=== PATIENT | female | born 1930 | race Caucasian/White ===

== ENCOUNTER 2021-05-21 13:55 | Inpatient (IN) | payer BC ==
[~2021-05-21] VITALS: Ht 167.6 cm; Wt 41.7 kg
[2021-05-21] MEDS ORDERED: WARF1TAB2 (14:05)
[2021-05-21] MEDS ORDERED: SYNTHROID (14:05)
[2021-05-21] MEDS ORDERED: TENORMIN (14:05)
--- NOTE | 2021-05-21 14:15 | NUR ---
BIB [facility] FOR LOW BP. I PALCED HER ON A MONITOR. IV PLACED ON LEFT WRIST/FOREARM AREA, IV FLUIDS RUNNING. PATIENT IS AWAKE, ALERT, ORIENTED X4 IN NO DISTRESS. DENIES PAIN. STATES SHE NEEDS A BLOOD TRANSFUSION WHICH SHE WAS GOING TO RECEIVE TODAY AT [facility].
[2021-05-21] MEDS ORDERED: IV NORMAL SALINE 1000 ML BAG IV ONE (14:30)
[2021-05-21 14:54] LABS: MEAN CORPUSCULAR HEMOGLOBIN 28.9 uug (24.7-32.8)
[2021-05-21 14:56] LABS: HEMATOCRIT 21.4 % (31.2-41.9); MEAN CORPUSCULAR VOLUME 88.7 fL (75.5-95.3); PLATELET COUNT (AUTO) 425 K/uL (179-408)
[2021-05-21 15:08] LABS: CREATININE 1.1 mg/dL (0.6-1.3); POTASSIUM 3.8 mmol/L (3.5-5.1)
[2021-05-21 15:13] LABS: BILIRUBIN,DIRECT 0.2 mg/dL (0.0-0.2); BILIRUBIN,TOTAL 0.5 mg/dL (0.2-1.0)
--- NOTE | 2021-05-21 15:21 | NUR ---
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 Patient denies chest pain, dizziness or SOB
--- NOTE | 2021-05-21 15:39 | NUR ---
PATIENT REFUSED TO SWALLOW LIQUIDS.
[2021-05-21] MEDS ORDERED: levoFLOXacin 750MG/D5W 150 ML IV ONE ×2 (15:45→16:09)
[2021-05-21] MEDS: PIPERACILLIN SODIUM/TAZOBACTAM 3.375 G in IV DEXTROSE 5% 50 ML IV ONE ×2 (15:46→15:58)
[2021-05-21] MEDS ORDERED: PIPERACILLIN/TAZOBACTAM/D5W 50 ML IV ONE (15:56)
--- NOTE | 2021-05-21 16:12 | NUR ---
I ASKED PATIENT IF SHE HAS ANY DRUG ALLERGIES (BEFORE I STARTED THE ZOSYN) AND SHE STATED SHE IS ALLERGIC TO PENICILLIN. I DID NOT ADMINISTER THE ZOSYN AND NOTIFIED DR SHELTON
--- NOTE | 2021-05-21 16:49 | NUR ---
T AND C FOR BLOOD TRANSFUSION DRAWN BY RAIMANN MACHINE OPERATOR NOW. PATIENT IS AWAKE AND ALERT WITH NO COMPLAINTS
[2021-05-21] MEDS ORDERED: ACETAMINOPHEN 325 MG TABLET PO PRN (17:15)
[2021-05-21] MEDS ORDERED: REMEDY ESSENTIAL ZINC PASTE 113 GM TP PRN (17:15)
[2021-05-21] MEDS ORDERED: MAGNESIUM HYDROXIDE 30 ML LIQUID UDC PO PRN (17:15)
[2021-05-21] MEDS ORDERED: ONDANSETRON 4 MG/2 ML VIAL IV PRN (17:15)
[2021-05-21] MEDS ORDERED: IV NS 1000 ML 1,000 ML IV PRN (17:15)
--- NOTE | 2021-05-21 19:53 | NUR ---
HAND OFF REPORT GIVEN TO NOC RN IN TELE. PATIENT IS AWAKE AND ALERT.
--- NOTE | 2021-05-21 21:00 | NUR ---
Patient arrived at 2014 via gurney. Alert and oriented x 3, hard of hearing. IV on left wrist intact and patent, running NS 75 ml/hr. On simple mask 6L, saturating at 98%. No signs of acute distress. Allergies to penicillin and latex noted. BP 74/38, runs low according to patient. Bed in the lowest position, bed alarm on, call light within reach. Safety measures initiated.
[2021-05-21 21:24] VITALS: BP 84/36
[2021-05-22] VITALS (10 sets, daily range): BP systolic 72–105; BP diastolic 30–45
--- NOTE | 2021-05-22 05:13 | NUR ---
Pt slept intermittently throughout the night. On RA saturating at 98%. One unit PRBC given, completed at 0411. BP 93/45, temp 98.2, R 18, HR 66. IV in left wrist intact and running 75 mls NS. Educated pt of risks and benefits of lab draw, continued to refuse troponin lab draw. No signs of acute distress. Call lights within reach. Safety measures maintained. Will endorse to am shift.
[2021-05-22 06:53] LABS: HEMATOCRIT 22.7 % (31.2-41.9); MEAN CORPUSCULAR HEMOGLOBIN 30.2 uug (24.7-32.8); PLATELET COUNT (AUTO) 306 K/uL (179-408)
[2021-05-22] MEDS ORDERED: PANTOPRAZOLE SODIUM 40 MG TABLET.DR PO SCH (07:00)
[2021-05-22 07:34] LABS: THYROID STIMULATING HORMONE 125.396 mIU/mL (0.358-3.740)
[2021-05-22 07:38] LABS: CREATININE 0.9 mg/dL (0.6-1.3); MAGNESIUM 2.2 mg/dL (1.8-2.4); PHOSPHOROUS 3.4 mg/dL (2.5-4.9); POTASSIUM 3.5 mmol/L (3.5-5.1)
--- NOTE | 2021-05-22 09:00 | NUR ---
Pt is a/o x 4, saturating 98% on 3L NC. Pt received 1 unit of blood during pm shift. pt's hgb increased from 7.0 to 7.8, hematocrit increased from 21.4 to 22.7. Troponin was refused during pm shift per report but morning labs indicated troponin within normal limits. Pt states that she wants to go home. Per cardio she is cleared for discharge. Plan is to discharge pt today. Comfort measures provided, call light within reach. will continue to monitor.
--- NOTE | 2021-05-22 12:01 | NUR ---
academic manager spoke to pt family member (Isa) to arrange for discharge. Pt will be going home, picker feeder time around 1230, Isa insisted that they dont need transportation and she will be taking her home. Pt notified of discharge order.
--- NOTE | 2021-05-22 13:27 | NUR ---
Pt has been discharged home. Pt was wheeled down to private car and was picked up by family friend Isa and machine striper. All belongings at hand. Discharge education given to pt and personal carer upon cone picker, Pt has an appt with her PCP on May 24. No complaint of pain, shortness of breath, or dizziness.
[2021-05-22] MEDS ORDERED: SOD FERRIC GLUC COMPLX/SUCROSE 125 MG in IV NORMAL SALINE 100 ML IV SCH (14:00)
[2021-05-22] MEDS ORDERED: levoFLOXacin 500 MG/D5W 500 MG in PREMIXED 1 EACH IV SCH (16:00)
[2021-05-23] MEDS ORDERED: levoFLOXacin 750MG/D5W 750 MG in PREMIXED 1 EACH IV SCH (16:00)
== END 2021-05-22 13:20 | disposition home or self-care (01) | DRG 811 ==
LOC: ER 13:55 → TELE3 19:55
PROVIDERS: ADMIT Hospitalist; ATTEND Hospitalist
PROC: 30233N1 Transfusion of Nonautologous Red Blood Cells into Peripheral Vein, Percutaneous Approach (ICD-10-PCS; principal; 2021-05-22)
DX: D50.9 Iron deficiency anemia, unspecified (principal); E43 Unspecified severe protein-calorie malnutrition; I48.20 Chronic atrial fibrillation, unspecified; I42.9 Cardiomyopathy, unspecified; J98.11 Atelectasis; Z68.1 Body mass index [BMI] 19.9 or less, adult; Z95.2 Presence of prosthetic heart valve; Z79.01 Long term (current) use of anticoagulants; E78.5 Hyperlipidemia, unspecified; E88.09 Other disorders of plasma-protein metabolism, not elsewhere classified; I95.9 Hypotension, unspecified; I50.9 Heart failure, unspecified; E03.9 Hypothyroidism, unspecified
CPT/HCPCS: 36415; 70030-TC; 71045; 83550; 83605; 83735; 84100; 84443; 85025; 85610; 85730; 86850; 86900; 86901; 86920; 87040; 93005; A4663; A6209; G0378; J1956; J2543; J2916; J3490; J7030; J7040; P9016

== ENCOUNTER 2021-05-30 08:21 | Inpatient (IN) | payer BC ==
[~2021-05-30] VITALS: Ht 162.6 cm; Wt 42.2 kg
[~2021-05-30 08:21] MED LIST: SYNTHROID; TENORMIN; WARF1TAB2
[2021-05-30 08:53] LABS: HEMATOCRIT 21.6 % (31.2-41.9); MEAN CORPUSCULAR HEMOGLOBIN 29.4 uug (24.7-32.8); MEAN CORPUSCULAR VOLUME 90.8 fL (75.5-95.3); PLATELET COUNT (AUTO) 284 K/uL (179-408)
--- NOTE | 2021-05-30 08:58 | NUR ---
UNABLE TO OBTAIN CURRENT LIST OF HOME MEDS R/T PT"S CONDITION. NO FURTHER INFO OTHER THAN STONE LAYER REPORT.
[2021-05-30 09:10] LABS: BILIRUBIN,TOTAL 0.5 mg/dL (0.2-1.0); CREATININE 0.9 mg/dL (0.6-1.3); POTASSIUM 3.7 mmol/L (3.5-5.1); TOTAL PROTEIN, SERUM 4.6 g/dL (6.4-8.2)
[2021-05-30] MEDS ORDERED: PHYTONADIONE 5 MG TABLET PO ONE (09:45)
[2021-05-30] MEDS ORDERED: PANTOPRAZOLE SODIUM IV 80 MG in IV DEXTROSE 5% 100 ML IV ONE (09:45)
[2021-05-30] MEDS ORDERED: ALBUMIN HUMAN 5% 250 ML IV ONE (09:45)
[2021-05-30] MEDS ORDERED: ALBUMIN HUMAN 5% 250 ML ONE (10:01)
[2021-05-30] MEDS ORDERED: PANTOPRAZOLE SODIUM 40 MG VIAL ONE (10:01)
[2021-05-30] MEDS ORDERED: IV NORMAL SALINE 500 ML BAG IV ONE (10:15)
--- NOTE | 2021-05-30 10:15 | NUR ---
BLOOD TRANSFUSION OF 1UNIT OF PRBC's STARTED AT RIGHT ARM. NO S/S OF ADVERSE REACTION. CONTINUE TO MONITOR THE PT.
[2021-05-30] MEDS ORDERED: CEFTRIAXONE 1 G in IV DEXTROSE 5% 50 ML IV ONE (10:30)
[2021-05-30] MEDS ORDERED: CEFTRIAXONE /D5W 50ML IVPB **ER PYXIS IV ONE (10:56)
[2021-05-30] MEDS ORDERED: PHYTONADIONE 10 MG/1 ML AMPUL SQ ONE (11:00)
--- NOTE | 2021-05-30 12:12 | NUR ---
BLOOD TRANSFUSION OF 1 UNIT OF PRBC's FINISHED. PT TOLERATED TO INFUSION WITHOUT COMPLICATIONS. ( SEE BLOOD TRANSFUSION RECORD). CONTINUE TO MONITOR THE PT.
--- NOTE | 2021-05-30 12:34 | NUR ---
REPORT WAS GIVEN TO COAT JOINER. PT WAS TRANSFERED TO ROOM #304.
[2021-05-30 13:42] VITALS: BP 111/54
[2021-05-30] MEDS ORDERED: ONDANSETRON 4 MG/2 ML VIAL IV PRN (13:45)
[2021-05-30] MEDS ORDERED: IV D5LR 1,000 ML IV PRN (13:45)
[2021-05-30] MEDS ORDERED: REMEDY ESSENTIAL ZINC PASTE 113 GM TP PRN (13:45)
[2021-05-30] MEDS ORDERED: ACETAMINOPHEN 325 MG TABLET PO PRN (13:45)
[2021-05-30] MEDS ORDERED: FURO-152 PO (13:53)
[2021-05-30] MEDS ORDERED: WARF-68 PO (13:55)
[2021-05-30] MEDS ORDERED: DIGO125T PO (13:56)
[2021-05-30] MEDS ORDERED: FERR325T28 PO (13:56)
[2021-05-30] MEDS ORDERED: ATEN-170 PO (13:57)
--- NOTE | 2021-05-30 14:24 | NUR ---
patient states not wanting to stay here Ryan HANDLEY notified, Ryan speaking with patient at the moment.
[2021-05-30 14:40] LABS: THYROID STIMULATING HORMONE 165.1 mIU/mL (0.358-3.740)
[2021-05-30 16:34] VITALS: BP 102/52
[2021-05-30] MEDS ORDERED: LEVOTHYROXINE SODIUM 100 MCG VIAL IV ONE (18:00)
[2021-05-30] MEDS: PANTOPRAZOLE SODIUM 40 MG VIAL IV SCH (20:05)
[2021-05-30 20:13] VITALS: BP 98/48
[2021-05-31 00:32] VITALS: BP 98/47
[2021-05-31 04:28] VITALS: BP 116/48
[2021-05-31] MEDS: PANTOPRAZOLE SODIUM 40 MG VIAL IV SCH ×2 (06:08→17:00)
[2021-05-31] MEDS ORDERED: LEVOTHYROXINE SODIUM 125 MCG TABLET PO SCH (07:00)
[2021-05-31 07:03] LABS: MEAN CORPUSCULAR HEMOGLOBIN 30.9 uug (24.7-32.8); MEAN CORPUSCULAR VOLUME 91.4 fL (75.5-95.3); PLATELET COUNT (AUTO) 266 K/uL (179-408)
[2021-05-31 07:22] LABS: CREATININE 0.8 mg/dL (0.6-1.3); MAGNESIUM 2.4 mg/dL (1.8-2.4); PHOSPHOROUS 2.8 mg/dL (2.5-4.9); POTASSIUM 3.7 mmol/L (3.5-5.1)
[2021-05-31 08:30] VITALS: BP 109/58
--- NOTE | 2021-05-31 08:41 | NUR ---
seen and examined by dr. nguyen and stated she wants to leave [facility]. shadia powell on the floor rounding made aware by dr. nguyen
[2021-05-31] MEDS ORDERED: ATENOLOL 25 MG TABLET PO SCH (09:00)
[2021-05-31] MEDS ORDERED: DIGOXIN 125 MCG TABLET PO SCH (09:00)
--- NOTE | 2021-05-31 09:20 | NUR ---
pt refusing her medications verbalized she wants to leave the hospital. alert and oriented x3. no acute distress. verbalized she didn't sign papers to be admitted. risks of leaving [facility] and benefits of continuing treatment explained but she's adamant. charge nurse aware. shadia powell made aware and will talk to her also. pt signed [facility] papers.
--- NOTE | 2021-05-31 11:20 | NUR ---
was informed by charge nurse that she spoke to pt's friend Isa and that she will be here at 7pm to pick and shovel man the patient.
[2021-05-31 12:00] VITALS: BP 99/43
[2021-05-31] MEDS ORDERED: FUROSEMIDE 20 MG/2 ML VIAL IV SCH (14:00)
[2021-05-31] MEDS ORDERED: FUROSEMIDE 20 MG/2 ML VIAL IV ONE (14:00)
--- NOTE | 2021-05-31 14:50 | NUR ---
Clinical Social Work Note SW met with 89 year old female who is alert and oriented x3. Patient presents with a withdrawn mood and flat affect. Patient presents unkept and not groomed. SW inquired about patient's living situation and support system. Patient stated that she lives alone and she has a house keeper. SW inquired about patient's skin tears on arms. Patient refused SNF placement and refused being linked to support at home. Plan: SW will file an APS report for self neglect.
--- NOTE | 2021-05-31 15:04 | NUR ---
Social Work APS Report Protective Services Report (Intake ID [id number]) was submitted on 05/31/2021 at 2:00 PM. A copy of report has been placed in patients chart.
--- NOTE | 2021-05-31 15:38 | NUR ---
informed dr. nguyen of bp 100/52 hr 73 d/t order lasix 20mg x1. per dr. nguyen hold medication for now.
[2021-05-31 16:30] VITALS: BP 93/50
--- NOTE | 2021-05-31 18:08 | NUR ---
informed restaurant service manager sheryr of patient refusing her meds today and didn't eat much stated she's going to eat at home when caregiver comes to pick her up.
--- NOTE | 2021-05-31 19:33 | NUR ---
Pt dischARGED [facility]. Wheeled out via her own wheelchair with her 2 frineds and our dry cans operator help her. IV taken off and id wrist band taken off. Pt in no acute distress.
[2021-05-31] MEDS ORDERED: LEVO125T8 PO (23:02)
== END 2021-05-31 19:25 | disposition left against medical advice (07) | DRG 377 ==
LOC: ER 08:21 → TELE3 12:17
PROVIDERS: ADMIT Nurse Practitioner Family; ATTEND Nurse Practitioner Family
PROC: 30233N1 Transfusion of Nonautologous Red Blood Cells into Peripheral Vein, Percutaneous Approach (ICD-10-PCS; principal; 2021-05-30)
DX: K92.2 Gastrointestinal hemorrhage, unspecified (principal); E43 Unspecified severe protein-calorie malnutrition; D62 Acute posthemorrhagic anemia; E87.2 Acidosis; E87.0 Hyperosmolality and hypernatremia; I42.9 Cardiomyopathy, unspecified; J90 Pleural effusion, not elsewhere classified; Z68.1 Body mass index [BMI] 19.9 or less, adult; E03.9 Hypothyroidism, unspecified; E78.5 Hyperlipidemia, unspecified; E86.0 Dehydration; E88.09 Other disorders of plasma-protein metabolism, not elsewhere classified; I48.91 Unspecified atrial fibrillation; Z95.2 Presence of prosthetic heart valve; R53.1 Weakness; R79.1 Abnormal coagulation profile; R94.6 Abnormal results of thyroid function studies; Z79.01 Long term (current) use of anticoagulants; I95.9 Hypotension, unspecified; E87.8 Other disorders of electrolyte and fluid balance, not elsewhere classified; Z20.822 Contact with and (suspected) exposure to COVID-19; Z88.0 Allergy status to penicillin; I10 Essential (primary) hypertension
CPT/HCPCS: 36415; 71045; 83550; 83605; 83735; 84100; 84443; 84481; 85018; 85025; 85610; 86850; 86900; 86901; 86920; 87040; 93005; 97161; A4663; A6209; C9113; G0378; J0696; J3430; J7030; J7040; J7060; P9016; P9045